=== PATIENT | female | born 1975 | race Caucasian/White ===

== ENCOUNTER 2021-11-01 14:23 | Emergency (ER) | payer OTHER ==
[~2021-11-01] VITALS: Ht 170.1 cm; Wt 111.1 kg
== END 2021-11-01 17:00 | disposition left against medical advice (07) ==
LOC: ED 14:23
DX: R22.1 Localized swelling, mass and lump, neck (principal); Z53.21 Procedure and treatment not carried out due to patient leaving prior to being seen by health care provider

== ENCOUNTER 2024-08-15 10:15 | Emergency (ER) | payer OTHER ==
[~2024-08-15] VITALS: Ht 167.6 cm; Wt 119.0 kg
[2024-08-15] MEDS ORDERED: SODIUM CHLORIDE 0.9% 1,000 ML IV ONE (10:20)
[2024-08-15] MEDS ORDERED: ADENOSINE 6 MG/2 ML VIAL IV ONE ×3 (10:25→10:33)
[2024-08-15] MEDS ORDERED: Metoprolol Tartrate 5 MG/5 ML VIAL IV ONE ×3 (10:25→10:33)
[2024-08-15] MEDS ORDERED: Amiodarone Hydrochloride 150 MG/3 ML VIAL IV ONE ×2 (10:25→11:46)
[2024-08-15] MEDS ORDERED: Amiodarone Hydrochloride 150 MG in DEXTROSE 5% 100 ML IV ONE (10:30)
[2024-08-15] MEDS ORDERED: Lidocaine Hydrochloride 100 MG/5 ML SYR IV ONE ×2 (10:30→10:42)
[2024-08-15] MEDS ORDERED: Amiodarone Hydrochloride 900 MG in DEXTROSE 5% 500 ML IV SCH (10:40)
[2024-08-15] MEDS ORDERED: TRAMADOL HCL50 MG PO (11:11)
[2024-08-15] MEDS ORDERED: JANUVIA100 MG PO (11:12)
[2024-08-15] MEDS ORDERED: CLOPIDOGREL75 MG PO (11:13)
[2024-08-15] MEDS ORDERED: NEURONTIN300 MG PO (11:13)
[2024-08-15] MEDS ORDERED: Lopressor25 MG PO (11:14)
[2024-08-15] MEDS ORDERED: ARIMIDEX1 MG PO (11:15)
[2024-08-15] MEDS ORDERED: MIRAPEX ER1.5 MG PO (11:16)
[2024-08-15] MEDS ORDERED: BUSPAR5 MG PO (11:16)
[2024-08-15] MEDS ORDERED: OXYBUTYNIN5 MG PO (11:17)
[2024-08-15 11:22] LABS: ACT PARTIAL THROMBO TIME 22.3 SECONDS (20.0-32.1)
[2024-08-15 11:28] LABS: BUN 12 mg/dl (9-23); CHLORIDE 104 mmol/L (98-107); POTASSIUM 3.9 mmol/L (3.4-5.1)
[2024-08-15 11:34] LABS: HEMATOCRIT 24.6 % (37.0-47.0); MEAN CELL VOLUME 93.5 fl (81.0-99.0); MEAN CORPUSCULAR HGB 29.7 pg (27.0-31.0); MEAN CORPUSCULAR HGB CONC 31.7 g/dl (33.0-37.0); MEAN PLATELET VOLUME 12.2 fl (9.6-12.3); NUCLEATED RED BLOOD CELL 0.2 % (0.0-0.0); PLATELET COUNT AUTOMATED 93 10*3/uL (130-400); RED BLOOD COUNT 2.63 10*6/uL (4.10-5.10); RED CELL DISTRI WIDTH 17.3 % (0-14.5); WHITE BLOOD COUNT 17.6 10*3/uL (4.8-10.8)
[2024-08-15 12:12] LABS: MANUAL DIFF REFLEX YES
[2024-08-15 12:14] LABS: POLYCHROMASIA SLIGHT; TOTAL CELLS COUNTED 100 #CELLS
[2024-08-15 12:15] LABS: OVALOCYTES FEW; PLATELET SUFFICIENCY LOW (NORMAL)
== END 2024-08-15 14:09 | disposition short-term general hospital (02) ==
LOC: ED 10:15
PROVIDERS: Emergency Medicine
DX: I47.10 Supraventricular tachycardia, unspecified (principal); I48.92 Unspecified atrial flutter; I25.10 Atherosclerotic heart disease of native coronary artery without angina pectoris; I10 Essential (primary) hypertension; E11.9 Type 2 diabetes mellitus without complications; R10.2 Pelvic and perineal pain; E78.5 Hyperlipidemia, unspecified; Z88.2 Allergy status to sulfonamides